=== PATIENT | female | born 2000 | race Caucasian/White ===

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

== ENCOUNTER 2018-05-07 02:21 | Inpatient (IN) | payer BC ==
--- NOTE | 2018-05-07 03:14 | ED ---
General Adult HPI - General Source: patient, RN notes reviewed Mode of arrival: ambulatory Limitations: no limitations <Tate Rodríguez P - Last Filed: 05/07/18 17:12> <Marli Fields P - Last Filed: 05/11/18 23:12> - General Chief complaint: Psychiatric Symptoms Stated complaint: MENTAL HEALTH Time Seen by Provider: 05/07/18 02:37 - History of Present Illness Initial comments: 18-year-old female presents to the emergency department for a chief complaint of suicidal thoughts 1.5 weeks. Patient states she does have a plan of suicide but refuses to disclose it to me at this time. Patient does admit to a history of depression and anxiety for which she is currently on Prozac and Lamictal. Patient states she has been taking her medications as directed. Patient denies any negative events preceding suicidal thoughts. She denies any thoughts of harming anyone else. Patient states she was admitted to psychiatric hospital for a "short time" in the past. Patient has no other complaints at this time including shortness of breath, chest pain, abdominal pain, nausea or vomiting, headache, or visual changes. (Tate Rodríguez) - Related Data Home Medications Medication Instructions Recorded Confirmed FLUoxetine HCL [PROzac] 80 mg PO DAILY 05/07/18 05/07/18 lamoTRIgine [LaMICtal] 200 mg PO DAILY 05/07/18 05/07/18 Allergies Allergy/AdvReac Type Severity Reaction Status Date / Time No Known Allergies Allergy Verified 05/07/18 07:18 Review of Systems ROS Other: All systems not noted in ROS Statement are negative. <Tate Rodríguez P - Last Filed: 05/07/18 17:12> ROS Other: All systems not noted in ROS Statement are negative. <Marli Fields P - Last Filed: 05/11/18 23:12> ROS Statement: Those systems with pertinent positive or pertinent negative responses have been documented in the HPI. Past Medical History Past Medical History: No Reported History History of Any Multi-Drug Resistant Organisms: None Reported Past Surgical History: Adenoidectomy, Tonsillectomy Past Psychological History: Anxiety, Bipolar, Panic Disorder Smoking Status: Never smoker Past Alcohol Use History: Rare Past Drug Use History: None Reported <Tate Rodríguez - Last Filed: 05/07/18 17:12> - Past Family History Father Family Medical History: No Reported History Mother Family Medical History: No Reported History <Marli Fields - Last Filed: 05/11/18 23:12> General Exam Limitations: no limitations General appearance: alert, in no apparent distress Head exam: Present: atraumatic, normocephalic, normal inspection Eye exam: Present: normal appearance, PERRL, EOMI. Absent: scleral icterus, conjunctival injection, periorbital swelling ENT exam: Present: normal exam, mucous membranes moist Neck exam: Present: normal inspection, full ROM. Absent: tenderness, meningismus, lymphadenopathy Respiratory exam: Present: normal lung sounds bilaterally. Absent: respiratory distress, wheezes, rales, rhonchi, stridor Cardiovascular Exam: Present: regular rate, normal rhythm, normal heart sounds. Absent: bradycardia, tachycardia, irregular rhythm Neurological exam: Present: alert, oriented X3, CN II-XII intact Psychiatric exam: Present: normal affect, normal mood <Tate Rodríguez P - Last Filed: 05/07/18 17:12> Vital Signs 05/07/18 05/07/18 02:27 08:00 Temperature 98.2 F 98.0 F Pulse Rate 97 84 Respiratory 18 18 Rate Blood Pressure 150/99 124/86 O2 Sat by Pulse 100 99 Oximetry Medical Decision Making <Tate Rodríguez P - Last Filed: 05/07/18 17:12> - Lab Data Result diagrams: 05/08/18 08:36 05/08/18 08:36 <Marli Fields - Last Filed: 05/11/18 23:12> - Medical Decision Making 18-year-old female presents to the emergency determine for chief suicidal thoughts 1.5 weeks. Patient does have a plan of suicide but refuses to disclose of this time. She does have a history of depression and anxiety and has been admitted for inpatient psychiatric treatment once prior to this. At this time EPI was consulted. Dr Fields took over care at 0400. (Tate Rodríguez ) Patient was evaluated by EPS who recommend inpatient placement (Marli Fields) - Lab Data Lab Results 05/07/18 05/07/18 Range/Units 02:44 02:44 Urine HCG, Qual Not Detected (Not Detectd) Urine Opiates Screen Not Detected (NotDetected) Ur Oxycodone Screen Not Detected (NotDetected) Urine Methadone Screen Not Detected (NotDetected) Ur Propoxyphene Screen Not Detected (NotDetected) Ur Barbiturates Screen Not Detected (NotDetected) U Tricyclic Antidepress Not Detected (NotDetected) Ur Phencyclidine Scrn Not Detected (NotDetected) Ur Amphetamines Screen Not Detected (NotDetected) U Methamphetamines Scrn Not Detected (NotDetected) U Benzodiazepines Scrn Detected H (NotDetected) Urine Cocaine Screen Not Detected (NotDetected) U Marijuana (THC) Screen Not Detected (NotDetected) Disposition Time of Disposition: 17:12 <Tate Rodríguez P - Last Filed: 05/07/18 17:12> <Marli Fields P - Last Filed: 05/11/18 23:12> Clinical Impression: Suicidal thoughts Disposition: ADMITTED IP TO THIS HOSP Condition: Good
[2018-05-07 04:12] LABS: Cocaine Screen,Urine Not Detected (NotDetected); Opiate Screen,Urine Not Detected (NotDetected); Phencyclidine Screen,Urine Not Detected (NotDetected); Urn Cannabinoid Scrn Not Detected (NotDetected)
[2018-05-07 04:13] LABS: Amphetamine Screen,Urine Not Detected (NotDetected); Barbiturate Screen,Urine Not Detected (NotDetected); Benzodiazepines Screen,Urine Detected (NotDetected); Methadone Screen, Urine Not Detected (NotDetected); Oxycodone Screen, Urine Not Detected (NotDetected); Tricyclic Antidepressant,Urine Not Detected (NotDetected)
[2018-05-07] MEDS ORDERED: MAG HYDROX/AL HYDROX/SIMETH 30 ML CUP PO PRN (08:44)
[2018-05-07] MEDS ORDERED: LORazepam 1 MG TAB PO PRN (08:44)
[2018-05-07] MEDS ORDERED: ACETAMINOPHEN TAB 325 MG TAB PO PRN (08:44)
[2018-05-07] MEDS ORDERED: MAGNESIUM HYDROXIDE 2,400 MG/10 ML CUP PO PRN (08:44)
[2018-05-07] MEDS ORDERED: NON-FORMULARY DRUG (Lamotrigine [Lamictal] 200 MG) PO SCH (09:00)
[2018-05-07 09:56] VITALS: BMI 20.9
--- NOTE | 2018-05-07 10:52 | P.CONS ---
History of Present Illness - History of Present Illness 19-year-old female presented the emergency room with complaints of suicidal ideation. States she had plan to crash her car. States she's felt that way for about 10 days. Noted in the chart she has a history of depression bipolar patient on Prozac and Lamictal. Patient's a healthy-appearing 18-year-old Lawrence Lindo freely Review of Systems Psychiatric: Reports depression, Reports suicidal ideation Past Medical History Past Medical History: No Reported History History of Any Multi-Drug Resistant Organisms: None Reported Past Surgical History: Adenoidectomy, Tonsillectomy Past Anesthesia/Blood Transfusion Reactions: Unable to Obtain Past Psychological History: Anxiety, Bipolar, Depression, Panic Disorder Additional Psychological History / Comment(s): Pt resides with her parents. She states she has had suicidal thoughts for about 1.5 weeks. Pt states she has a plan but does not want to discuss it with proposal lead writer. She states she wishes she were . 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 Smoking Status: Never smoker Past Alcohol Use History: Rare Past Drug Use History: None Reported - Past Family History Father Family Medical History: No Reported History Mother Family Medical History: No Reported History Medications and Allergies Home Medications Medication Instructions Recorded Confirmed Type FLUoxetine HCL [PROzac] 80 mg PO DAILY 05/07/18 05/07/18 History lamoTRIgine [LaMICtal] 200 mg PO DAILY 05/07/18 05/07/18 History Allergies Allergy/AdvReac Type Severity Reaction Status Date / Time No Known Allergies Allergy Verified 05/07/18 07:18 Physical Exam Vitals: Vital Signs Temp Pulse Pulse Resp BP BP Pulse Ox 05/07/18 09:48 98.8 F 88 18 119/82 05/07/18 08:00 98.0 F 84 18 124/86 99 05/07/18 02:27 98.2 F 97 18 150/99 100 Intake and Output 05/06/18 05/07/18 05/07/18 22:59 06:59 14:59 Other: Weight 56.699 kg 53.532 kg - Constitutional General appearance: average body habitus, no acute distress - EENT Eyes: PERRLA ENT: normal oropharynx Ears: bilateral: normal - Neck Neck: normal ROM - Respiratory Respiratory: bilateral: CTA - Cardiovascular Rhythm: regular - Gastrointestinal General gastrointestinal: soft - Integumentary Integumentary: normal - Neurologic Neurologic: CNII-XII intact - Musculoskeletal Musculoskeletal: gait normal - Psychiatric Psychiatric: A&O x's 3, appropriate affect, intact judgment & insight Results Labs: Abnormal Lab Results - Last 24 Hours (Table) 05/07/18 Range/Units 02:44 U Benzodiazepines Scrn Detected H (NotDetected) Assessment and Plan Plan: Assessment Depression and suicidal ideation History of bipolar Depression Anxiety with panic disorder Plan Patient is medically stable 18-year-old Continue psychiatric evaluation and treatment
[2018-05-07] MEDS: FLUoxetine HCL 20 MG CAP PO SCH (11:17)
--- NOTE | 2018-05-07 14:48 | P.HP ---
Psychiatric H&P - . H&P Date: 05/07/18 History & Physical: IDENTIFYING DATA: The patient is a 18-year-old single female admitted to the psychiatric unit voluntarily. HISTORY OF PRESENT ILLNESS: She presented to the emergency room with complaints of increasing feelings of depression, hopelessness and thoughts of suicide. She stated that she is felt depressed "almost" continuously since she was a child with "brief" periods where she felt normal. The severity of depression has worsened particular within the last 1-2 weeks prior to admission. She described a sense of impending doom and increasing thoughts of suicide. She told the admitting nurse that she has a plan but was unwilling to discuss the plan during our interview. She described many of the classic symptoms of a depressive disorder including persistent feelings depression, low mood, decreased interest in usual activities, decreased energy, poor appetite and weight loss. She denied a history of suicide attempts or gestures. She had a history of self cutting between the ages of 13 and 15 and described struggling with thoughts and urges to cut herself "to relieve the emotional pain." She denied psychotic symptoms such as auditory, visual or olfactory hallucinations, ideas of reference, thought insertion, thought broadcasting etc. She describes persistent anxiety that varies in severity but denied recent panic attacks. She stated that she had panic attacks "in the past". She denied obsessions or compulsions. She denied use of alcohol or drugs. She described brief periods of elevated mood suggestive of hypomania where she feels as though she is "racing" these episodes last for 1-2 days and resolved spontaneously. She denied that she has experienced a sustained period of elevated mood or irritability lasting for more than 1-2 weeks. PAST PSYCHIATRIC HISTORY: She denied prior psychiatric hospitalizations. Her family referred her for individual counseling when she was 14 years old. She alleged that she was unaware of the reason for the referral but the time coincides with the period when she began cutting herself. After she graduated from high school she attended [employer] where she sought mental health treatment through the University program. This is when she was first prescribed an antidepressant medication. She met with both psychiatrist and individual therapist through the [facility] student clinic. She says she been tried on several antidepressant medications included venlafaxine, sertraline, Lexapro, bupropion. She either could not tolerate or "felt worse" with these medications. She initially "felt better" when she was prescribed Prozac and the dose has been progressively increased to 80 mg per day. She engaged with [facility] about one year ago and meets with both a psychiatrist and individual therapist. This psychiatrist prescribed Lamictal "sometime this year" and gradually increasing doses 200 mg per day. She alleged she noticed no change in her mood with the addition of Lamictal. She denied that she's been treated with lithium or second-generation antipsychotic medications. PAST MEDICAL HISTORY: She denied history of major medical problems. ALLERGIES: NO KNOWN DRUG ALLERGIES. SUBSTANCE USE HISTORY: She denied a history of problems with alcohol or drugs. FAMILY PSYCHIATRIC/SUBSTANCE USE HISTORY: She is unaware of family history of psychiatric or substance abuse problems. LEGAL HISTORY: She denied a history of legal problems. SOCIAL HISTORY: She was born and raised in an intact family. She graduated from high school with honors and talked about having accrued approximately 60 credits of advance placement college credits prior to graduation. She attended [employer] under an academic scholarship for a 3 semesters. When jacqui academic performance declined she lost her scholarship. She did not have a career plan but expressed an interest in studying psychology. 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 She works between 35 and 40 hours per week. She lives at home with her parents. She is single and has no children. She is not dating. MENTAL STATUS EXAM: She presented as a casually groomed young female who looked her stated age. She attended to the interview and made eye contact. She had no distinguishing features or prominent physical abnormalities. She had a depressed facial expression. She was alert and oriented to person, place and time. She showed psychomotor retardation but no abnormal movements. Her gait was slow but steady. Her speech was spontaneous with decreased volume, rate and rhythm. She had no articulation difficulties. Her affect was depressed and not reactive. She describes suicidal ideation and wishes. She denied homicidal ideation. She expressed such depressive cognitions as hopelessness, helplessness and worthlessness. She ruminated about her academic failure. She did not express ideas reference, paranoid ideation or delusional thoughts. Her thinking was abstract and associations were coherent, logical and goal directed. She did not demonstrate clang associations, perseverations, neologisms or blocking. She denied hallucinations and did not appear to be responding to internal stimuli. Global impression of intellect is average to above. She is aware of her illness and need for mental health treatment. STRENGTHS: Supportive family, good health, gainfully unemployment, engagement with mental health services, stable housing. WEAKNESSES: Chronic depression. IMPRESSION: She is a 18-year-old single female who has a history of a depressive disorder beginning in early adolescence. She presented to the psychiatric unit with increasing feelings depression and suicidal ideation. She was guarded during the interview about the nature of the suicidal thoughts and plans. She has many the classic symptoms of a depressive disorder but there is no evidence of psychosis. She has symptoms suggestive of brief periods of elevated mood but the duration and the severity did not appear to meet full criteria for manny or hypomania. She been treated with multiple antidepressant medication without success and most recently with a combination of Prozac and Lamictal. She is unaware of the reason her outpatient psychiatrist prescribed the Lamictal but I suspect is related that brief periods of apparent elevation in mood. She would best be treated inpatient basis with combination of psychopharmacology and multimodal therapy. We'll gradually taper then discontinue Lamictal and discuss treatment another augmentation such as lithium or second generation antipsychotic. PRINCIPLE DIAGNOSIS: Dysthymic disorder, major depressive disorder severe without psychotic features, rule out unspecified personality disorder with dependent features RECOMMENDATION: Continue inpatient hospitalization. Safety precautions. Continue Prozac at a dose of 60 mg per day. Decrease Lamictal to 150 mg daily and taper according to tolerance. Obtain collateral information from family. Consult medicine for initial physical exam and medical history. plate worker to complete initial psychosocial assessment. Encourage participation in therapeutic groups and activities. Evaluate clinical status response to treatment daily basis. Allergies Allergy/AdvReac Type Severity Reaction Status Date / Time No Known Allergies Allergy Verified 05/07/18 07:18 Vital Signs Temp 98.8 F 05/07/18 09:48 Pulse 88 05/07/18 09:48 Resp 18 05/07/18 09:48 BP 119/82 05/07/18 09:48 Pulse Ox 99 05/07/18 08:00 Intake & Output 05/06/18 05/07/18 05/07/18 18:59 06:59 18:59 Weight 56.699 kg 53.532 kg Laboratory Last Values Urine HCG, Qual Not Detected (Not Detectd) 05/07/18 02:44 Urine Opiates Screen Not Detected (NotDetected) 05/07/18 02:44 Ur Oxycodone Screen Not Detected (NotDetected) 05/07/18 02:44 Urine Methadone Screen Not Detected (NotDetected) 05/07/18 02:44 Ur Propoxyphene Screen Not Detected (NotDetected) 05/07/18 02:44 Ur Barbiturates Screen Not Detected (NotDetected) 05/07/18 02:44 U Tricyclic Antidepress Not Detected (NotDetected) 05/07/18 02:44 Ur Phencyclidine Scrn Not Detected (NotDetected) 05/07/18 02:44 Ur Amphetamines Screen Not Detected (NotDetected) 05/07/18 02:44 U Methamphetamines Scrn Not Detected (NotDetected) 05/07/18 02:44 U Benzodiazepines Scrn Detected (NotDetected) H 05/07/18 02:44 Urine Cocaine Screen Not Detected (NotDetected) 05/07/18 02:44 U Marijuana (THC) Screen Not Detected (NotDetected) 05/07/18 02:44 05/07/18 11:28 05/07/18 14:40
[2018-05-07] MEDS: lamoTRIgine 100 MG TAB PO SCH (20:04)
[2018-05-07] MEDS ORDERED: lamoTRIgine 100 MG TAB PO SCH (21:00)
[2018-05-08] MEDS: FLUoxetine HCL 20 MG CAP PO SCH (08:40)
[2018-05-08 09:37] LABS: ALT 27 U/L (9-52); AST 23 U/L (14-36); Albumin 4.8 g/dL (3.5-5.0); Alkaline Phosphatase 77 U/L (38-126); Anion Gap 13 mmol/L; Blood Urea Nitrogen 11 mg/dL (7-17); Calcium 10.3 mg/dL (8.4-10.2); Carbon Dioxide 25 mmol/L (22-30); Chloride 105 mmol/L (98-107); Glucose 95 mg/dL (74-99); Potassium 4.1 mmol/L (3.5-5.1); Sodium 143 mmol/L (137-145); Total Bilirubin 0.7 mg/dL (0.2-1.3); Total Protein 7.8 g/dL (6.3-8.2)
[2018-05-08 09:40] LABS: Basophils % (A) 1 %; Eosinophils # (A) 0.1 k/uL (0-0.7); Eosinophils % (A) 2 %; HCT 41.8 % (34.0-46.0); HGB 13.8 gm/dL (11.4-16.0); Lymphocytes # (A) 1.8 k/uL (1.0-4.8); Lymphocytes % (A) 35 %; MCH 30.1 pg (25.0-35.0); MCV 91.4 fL (80.0-100.0); Mean Platelet Volume 6.5; Monocytes # (A) 0.3 k/uL (0-1.0); Monocytes % (A) 7 %; Neutrophils # (A) 2.8 k/uL (1.3-7.7); Neutrophils % (A) 54 %; Platelet Count 359 k/uL (150-450); RBC 4.58 m/uL (3.80-5.40); RDW 13.1 % (11.5-15.5); WBC 5.2 k/uL (4.0-11.0)
--- NOTE | 2018-05-08 12:33 | P.PN ---
Progress Note - Text Progress Note Date: 05/08/18 Clinical Problems: Dysthymic disorder, major depressive disorder recurrent severe without psychotic features, unspecified personality disorder Interim history: I reviewed the medical record, interviewed the patient and discussed her treatment and treatment plan during team meeting. We reviewed her history and clarified the circumstances associating with the increase in complaints of depression and suicidal ideation. She stated that she feels that she is a burden to her friends and family. She feels she is a burden because she is chronically depressed and feels dependent on her friends. She alleged that she does not have a close relationship with her mother or father. She appears never to have developed a close restaurant with her father and recently feels more estranged from mother. As during the initial assessment she was vague and guarded about her history and maintaining only that she feels chronically depressed, hopeless and useless. Apparently her sister told her parents that she was admitted to the hospital and her parents visited last night. The patient agreed to a release and her nephrology social worker spoke with her mother. Her mother told nephrology social worker that Mindi does not like confrontation and they have been confronting her more. For example they have confronted her about not taking college classes this fall, not caring for her pet animals and not going to counseling appointments. Her mother stated that she has been distancing herself from her parents and staying with a friend Sharyn. Her friend Sharyn told her parents that Mindi asked Sharyn to administer her medications because she did not trust herself to take medications appropriately. Her mother expressed concern that Estlele may be drinking alcohol while taking the medications. Mental status exam: She presented as a thin pale appearing 18-year-old female who looked much greater than her stated age. She had a depressed facial expression. She showed psychomotor retardation but no abnormal movements. Her speech was not spontaneous and had decreased rate, rhythm and volume. Affect was depressed and not reactive. She expects suicidal ideation and wishes but denied current intent or plan. She did not express ideas reference or paranoid ideation. Her thinking was abstract and associations were coherent and logical. She denied hallucinations and did not appear to be responding to internal stimuli. Assessment: She continues to appear depressed and has passive suicidal ideation. Collateral information is suggesting characterological component to the chronic depression. Plan: Continue inpatient hospitalization. Continue safety precautions. Continue to taper will begin a plan to discontinue Lamictal. Begin lithium carbonate 300 mg twice a day when the Lamictal has been decreased to 50-100 mg daily. Continue Prozac 60 mg daily. Encourage continued participation in therapeutic groups and activities. Evaluate clinical status response to treatment on a daily basis.
[2018-05-08] MEDS: lamoTRIgine 100 MG TAB PO SCH (20:01)
[2018-05-09] MEDS: FLUoxetine HCL 20 MG CAP PO SCH (10:27)
--- NOTE | 2018-05-09 12:30 | P.PN ---
Progress Note - Text Progress Note Date: 05/09/18 Clinical Problems: Dysthymic disorder, major depressive disorder recurrent severe without psychotic features, unspecified personality disorder with dependent traits Interim history: I reviewed the medical record, interviewed the patient and discuss her treatment and treatment plan during team meeting. She reported feeling less depressed than on admission. She denied current suicidal thoughts. We talked about the concerns that her mother raised during her mother's conversation with the executive secretary social welfare. We also talked about the circumstances that may have contributed to worsening depression. Apparently, her depression worsened following the breakup with her most recent girlfriend. This was the person with whom she was living before she returned home. She is in agreement with the recommendation for a family meeting. She continues to agree with the plan to taper and discontinue the Lamictal and begin a trial of lithium as an augmentation of the antidepressant. Mental status exam: She presented as a thin and pale appearing young female who looked much younger than her stated age. She had a blunted facial expression. She showed psychomotor retardation but no abnormal movements. Her speech was spontaneous with slight decrease in rate and rhythm. Her affect was depressed but reactive (unlike during prior interviews). She denied experiencing current suicidal thoughts or wishes. She did not express psychotic symptoms. Her thinking remains abstract and her associations are coherent and goal directed. Assessment: She appears less distressed than on admission and appears more forthcoming about the circumstances that may have led to the worsening in her mood. Plan: Continue inpatient hospitalization. Continue safety precautions. Decrease Lamictal to 100 mg at bedtime continue to taper then discontinue. Continue Prozac 60 mg daily. Begin lithium 300 mg twice a day. Family meeting is scheduled for tomorrow. Anticipate discharge early next week.
[2018-05-09] MEDS: LITHIUM CARBONATE 300 MG CAP PO SCH (20:16)
[2018-05-09] MEDS ORDERED: lamoTRIgine 100 MG TAB PO SCH (21:00)
[2018-05-10] MEDS: FLUoxetine HCL 20 MG CAP PO SCH (08:29)
[2018-05-10] MEDS: LITHIUM CARBONATE 300 MG CAP PO SCH ×2 (08:29→20:05)
--- NOTE | 2018-05-10 17:11 | P.PN ---
Progress Note - Text Progress Note Date: 05/10/18 IDENTIFICATION DATA: 18-year-old female admitted to the psychiatric unit voluntarily with complaints of increasing feelings of depression, hopelessness and thoughts of suicide. INTERVAL HISTORY: No major behavioral problems reported. Patient reports to have attended family meeting which went well. She is currently looking forward to go back to live wither parents. She reports feeling better than the day of her admission. She currently rates her depression as 6/10 1 being beast and 10 being worst. She reports good sleep and appetite. MENTAL STATUS EXAMINATION: Patient is pleasant and cooperative. She is dressed casually and appears in good grooming and hygiene. No abnormal movements noted. Her speech is soft and slow. Thought process is goal directed. She denies current auditory or visual hallucinations. She denies paranoia. The patient is alert and oriented 4 Mood is reported as better and affect is appropriate. Denies current suicidal or homicidal ideation. insight and judgment are improving ASSESSMENT AND PLAN: Reduce the dose of lamictal from 100mg po qhs to 75mg po qhs. Continue lithium and prozac.
[2018-05-10] MEDS ORDERED: lamoTRIgine 25 MG TAB PO SCH (21:00)
[2018-05-11] MEDS: FLUoxetine HCL 20 MG CAP PO SCH (09:05)
[2018-05-11] MEDS: LITHIUM CARBONATE 300 MG CAP PO SCH ×2 (09:06→20:41)
[2018-05-11 12:28] LABS: Amorphous Sediment,Urine Rare /hpf; Appearance,Urine Cloudy (Clear); Bilirubin,Urine Negative (Negative); Blood,Urine Negative (Negative); Color,Urine Light Yellow; Glucose,Urine (UA) Negative (Negative); Ketones,Urine Negative (Negative); Leukocyte Esterase,Urine Negative (Negative); Mucus,Urine Rare /hpf; Nitrite,Urine Negative (Negative); PH, Urine 7.5 (5.0-8.0); Protein,Urine Negative (Negative); Squamous Epithelial Cell,Urine 1 /hpf (0-4); Urobilinogen,Urine <2.0 mg/dL (<2.0)
--- NOTE | 2018-05-11 17:55 | P.PN ---
Progress Note - Text Progress Note Date: 05/11/18 IDENTIFICATION DATA: 18-year-old female admitted to the psychiatric unit voluntarily with complaints of increasing feelings of depression, hopelessness and thoughts of suicide. INTERVAL HISTORY: She states her goal is to complete one more year of her college and to find something that interests her later. She reports being complaint with her medications and denies side effects. She says her parents and friends have visited her yesterday. She reports significant improvement of her depression when compared to her day of admission. No major behavioral problems reported. She reports good sleep and appetite. She attends most of her assigned groups. MENTAL STATUS EXAMINATION: Patient is pleasant and cooperative. She is dressed casually and appears in good grooming and hygiene. No abnormal movements noted. Her speech is soft. Thought process is goal directed. She denies current auditory or visual hallucinations. She denies paranoia. The patient is alert and oriented 4 Mood is reported as better and affect is appropriate. Denies current suicidal or homicidal ideation. insight and judgment are improving ASSESSMENT AND PLAN: Reduce the dose of lamictal from 75mg po qhs to 50mg po qhs. Continue lithium and prozac.
[2018-05-11] MEDS ORDERED: lamoTRIgine 25 MG TAB PO SCH (21:00)
[2018-05-12 07:09] VITALS: BP 125/74; PULSE 76; RESP 18; TEMP 98.1
[2018-05-12] MEDS: LITHIUM CARBONATE 300 MG CAP PO SCH (08:05)
[2018-05-12] MEDS: FLUoxetine HCL 20 MG CAP PO SCH (08:05)
--- NOTE | 2018-05-12 11:53 | P.DS ---
Providers Date of admission: 05/07/18 08:42 Attending physician: Aquiles Worthy MD Consults: 05/07/18 08:44 Consult Physician Routine Consulting Provider: Alphonse Cabral Consult Reason/Comments: H and P Do you want consulting provider notified?: Yes - Discharge Diagnosis(es) (1) Dysthymic disorder Current Visit: Yes Status: Chronic Priority: Medium (2) Major depressive disorder, recurrent episode Current Visit: Yes Status: Resolved Priority: Medium (3) Suicidal thoughts Current Visit: Yes Status: Resolved Priority: Medium Hospital Course: The patient is a 18-year-old single female admitted to the psychiatric unit voluntarily with complaints of increasing depression and suicidal ideation. She complained of feeling depressed almost continuously since he was a child with only brief periods where she "felt normal". She alleged the severity of depression had worsened one to 2 weeks prior to admission. She described a sense of impending doom and increasing thoughts of suicide. She is vague about her plan. She described many of the classic symptoms of depression including persistent feelings of sadness, lack of energy , low mood, decreased interest in usual activities, poor appetite etc. She denied a history of suicide attempts or gestures. She had history of self cutting between the ages of 13 and 15 and describes struggling with thoughts and urges to cut herself again "to relieve emotional pain." She denied psychotic symptoms. She described persistent anxiety that varies in severity but denied symptoms suggestive of panic attacks. She described periods of elevated mood suggestive of hypomania where she feels as though she has "racing ". However these episodes last for no more than one day and resolve spontaneously. She denied that she is experiencing sustained periods of elevated mood or irritability lasting for more than 1-2 weeks. We admitted her to psychiatric unit involuntarily under the care of this designer writer. We provided a comprehensive biopsychosocial assessment. The sales development consultant machinist brake completed initial physical exam and medical history. She participated in therapeutic groups and activities and posed no management problem. A recurring theme during individual and group contacts was a general unhappiness with the state of her life. After she lost her academic scholarship (due to poor academic performance) she did not return to school. She is no longer living with a girlfriend and is dissatisfied with living with her parents. We arranged a family meeting attended by both her parents. She reported improved mood following the family meeting because she was able to express her concerns to her parents. We will reduce her outpatient dose of Prozac from 80 mg to 60 mg per day and tapered Lamictal to 50 mg per day (with the intent to discontinue as an outpatient). We started lithium 300 mg by mouth twice a day for augmentation of the Prozac. At the time of discharge she reported improved mood and absence of suicidal thoughts, ideation, intent or plan. She plans to continue with outpatient treatment through [facility]. Patient Condition at Discharge: Good Plan - Discharge Summary Discharge Rx Participant: No New Discharge Prescriptions: New FLUoxetine HCL [PROzac] 60 mg PO DAILY #90 cap lamoTRIgine [LaMICtal] 50 mg PO HS #8 tab [place] Carbonate 300 mg PO BID #60 cap Discontinued lamoTRIgine [LaMICtal] 200 mg PO DAILY FLUoxetine HCL [PROzac] 80 mg PO DAILY Discharge Medication List FLUoxetine HCL [PROzac] 60 mg PO DAILY #90 cap 05/12/18 [Rx] [place] Carbonate 300 mg PO BID #60 cap 05/12/18 [Rx] lamoTRIgine [LaMICtal] 50 mg PO HS #8 tab 05/12/18 [Rx] Follow up Appointment(s)/Referral(s): [facility] [Outside] - 05/21/18 12:00 pm (Marita Ochoa on cancellation list to get in earlier. ) Alphonse Cabral MD [STAFF PHYSICIAN] - 1-2 days Discharge Disposition: HOME SELF-CARE
== END 2018-05-12 14:30 | disposition home or self-care (01) | DRG 885 ==
LOC: EC 02:21 → 3MHU 08:42
PROVIDERS: ADMIT Psychiatry & Neurology Psychiatry; ATTEND Psychiatry & Neurology Psychiatry
DX: F33.2 Major depressive disorder, recurrent severe without psychotic features (principal); R45.851 Suicidal ideations; F34.1 Dysthymic disorder; F41.0 Panic disorder [episodic paroxysmal anxiety]; F60.9 Personality disorder, unspecified; Z79.899 Other long term (current) drug therapy; Z91.5 Personal history of self-harm
CPT/HCPCS: 80053; 80306; 81001; 81025; 82075; 84443; 85025; 99285

== ENCOUNTER → 2018-06-11 | Outpatient (CLI) | payer BC | END | disposition home or self-care (01) | LOC: LABWHC1 12:26 | PROVIDERS: ATTEND Psychiatry & Neurology Psychiatry | DX: Z51.81 Encounter for therapeutic drug level monitoring (principal) | CPT/HCPCS: 36415; 80178 ==

== ENCOUNTER → 2018-07-05 | Outpatient (CLI) | payer BC | END | disposition home or self-care (01) | LOC: LABWHC1 10:25 | PROVIDERS: ATTEND Psychiatry & Neurology Psychiatry | DX: F32.9 Major depressive disorder, single episode, unspecified (principal) | CPT/HCPCS: 36415; 80178 ==

== ENCOUNTER → 2018-07-26 | Outpatient (CLI) | payer BC | LOC: LABWHC1 10:07 | PROVIDERS: ATTEND Psychiatry & Neurology Psychiatry | DX: F34.1 Dysthymic disorder (principal); F41.1 Generalized anxiety disorder | CPT/HCPCS: 36415; 80178 ==

== ENCOUNTER → 2020-06-30 | Outpatient (CLI) | payer BC ==
[2020-06-30 14:50] LABS: Basophils % (A) 1 %; Eosinophils # (A) 0.1 k/uL (0-0.7); Eosinophils % (A) 2 %; HCT 40.3 % (34.0-46.0); HGB 14.1 gm/dL (11.4-16.0); Lymphocytes # (A) 1.7 k/uL (1.0-4.8); Lymphocytes % (A) 31 %; MCH 31.7 pg (25.0-35.0); MCHC 35.1 g/dL (31.0-37.0); MCV 90.3 fL (80.0-100.0); Mean Platelet Volume 7.2; Monocytes # (A) 0.3 k/uL (0-1.0); Monocytes % (A) 5 %; Neutrophils # (A) 3.3 k/uL (1.3-7.7); Neutrophils % (A) 59 %; Platelet Count 268 k/uL (150-450); RBC 4.46 m/uL (3.80-5.40); WBC 5.6 k/uL (3.8-10.6)
== END | disposition home or self-care (01) ==
LOC: LABPAT 14:30
PROVIDERS: ATTEND Obstetrics & Gynecology
DX: Z01.818 Encounter for other preprocedural examination (principal); G89.29 Other chronic pain; R10.2 Pelvic and perineal pain
CPT/HCPCS: 36415; 85025

== ENCOUNTER 2020-07-11 09:05 | Day surgery (SDC) | payer BC ==
[2020-07-05 14:47] VITALS: BMI 24.7
[~2020-07-11 09:05] MED LIST: DEXAMETHASONE SOD PHOSPHATE 4 MG/ML 1 ML VIAL IV ONE; MIDAZOLAM 2 MG/2 ML VIAL IV PRN; ONDANSETRON 4 MG/2 ML VIAL IVP ONE; Pre Op ABX Message 1 EACH MISC MISCELLANE ONE; SCOPOLAMINE 1.5MG/72HR PATCH TRANSDERM ONE
[2020-07-11] MEDS ORDERED: LIDOCAINE 1% (10MG/ML) FOR IV START INTRADERMA ONE (09:34)
[2020-07-11] MEDS ORDERED: LIDOCAINE 1% INJ 10MG/ML (20 ML MDV) ONE (09:45)
[2020-07-11] MEDS ORDERED: GLYCOPYRROLATE 0.2 MG/ML 2 ML VIAL ONE (09:45)
[2020-07-11] MEDS ORDERED: NEOSTIGMINE 1 MG/ML 10 ML VIAL ONE (09:45)
[2020-07-11] MEDS ORDERED: PROPOFOL 10 MG/ML 20 ML VIAL IV ONE (09:45)
[2020-07-11] MEDS ORDERED: SUCCINYLCHOLINE CHLORIDE 100 MG/5 ML SYR IV ONE (09:45)
[2020-07-11] MEDS ORDERED: MIDAZOLAM 2 MG/2 ML VIAL ONE (09:45)
[2020-07-11] MEDS ORDERED: ROCURONIUM 10 MG/ML (10 ML VIAL) IV ONE (09:45)
[2020-07-11] MEDS ORDERED: KETOROLAC 15 MG/ML 1 ML VIAL ONE (09:45)
[2020-07-11] MEDS ORDERED: fentaNYL (PF) 50 MCG/ML 2 ML AMP ONE (09:45)
[2020-07-11] MEDS: LACTATED RINGERS 1,000 ML IV SCH ×2 (09:50→11:39)
[2020-07-11] MEDS ORDERED: LACTATED RINGERS 1,000 ML IV ONE (09:53)
[2020-07-11] MEDS ORDERED: BUPIVACAIN-EPI 0.25%-1:200,000 30 ML VIAL SQ ONE ×2 (10:14)
--- NOTE | 2020-07-11 10:39 | P.OP ---
Date of Procedure: 07/11/20 Preoperative Diagnosis: Cyclic chronic pelvic pain Postoperative Diagnosis: Pelvic endometriosis Procedure(s) Performed: Diagnostic laparoscopy, cautery pelvic endometriosis Anesthesia: ANATOLIY Surgeon: Minna Sprague Estimated Blood Loss (ml): 15 IV fluids (ml): 700 Urine output (ml): 25 Pathology: none sent Condition: stable Disposition: PACU Operative Findings: A cluster of pelvic endometriosis noted in the right posterior cul-de-sac near the uterosacral ligament. Description of Procedure: Patient is brought to the operating suite where general anesthetic is administered without difficulty. Beta hCG is negative. The appropriate timeout is performed to assure proper patient and procedural identification and a general anesthetic is administered. Patient is placed in the dorsal lithotomy position. The cervix, vagina, perineal body, and abdomen are all prepped and draped in usual sterile fashion. Bladder is drained for approximately 25 mL of clear yellow urine. Weighted speculum was placed into the vagina and the anterior lip of the cervix is grasped with a long Allis clamp. The small acorn cannula is placed onto the external os and attached to the Allis clamp. The speculum is removed. Attention is now turned to the abdomen. A small infraumbilical incision is made and the varies needle is placed and placement is checked with hanging drop technique. Abdomen is insufflated under low filling pressures of approximately 6 mmHg to approximately 3 L of CO2 gas. The varies needle is removed. The trochars placed and placement is noted to be atraumatic. A second incision is made suprapubically and a second trocar is placed under direct visualization, again entry is atraumatic. Patient is now put in the Trendelenburg position. Careful inspection of the uterus, bilateral tubes and ovaries, uterosacral ligaments, anterior and posterior cul-de-sac, pelvic sidewalls, appendix, gallbladder is undertaken. There is a foci or cluster of endometriosis noted behind the right lateral aspect of the uterus near the cul-de-sac, at the base of the uterosacral ligament. This is cauterized carefully and thoroughly. No additional foci of endometriosis are noted upon thorough inspection of the pelvic and abdominal organs. The CO2 gas was allowed to diffuse. The instruments are removed and the fascial defects are clean and dry. 4-0 undyed Monocryl is used for subcuticular closure of the 2 incisions. They are injected with a total of 10 mL of quarter percent Marcaine aid in analgesia. Instrumentation is removed from the vagina. Cervix is clean and dry. All sponge needle and instrument counts are correct. Patient is brought back to recovery room in very good condition with stable vital signs including a blood pressure of 104/50, pulse of 52, 100% O2 saturation. Toradol is given prior to leaving the operative suite. Patient will follow-up with me in the office in 2 weeks.
[2020-07-11 10:46] VITALS: TEMP 97.1
[2020-07-11] MEDS: HYDROmorphone 0.5 MG/0.5 ML SYRINGE IVP PRN ×2 (10:48→11:11)
[2020-07-11] MEDS ORDERED: ACETAMINOPHEN TAB 325 MG TAB ONE (12:32)
[2020-07-11 13:00] VITALS: BP 133/88; PULSE 88; RESP 18
== END 2020-07-11 13:10 | disposition home or self-care (01) ==
LOC: OR 09:05
PROVIDERS: ATTEND Obstetrics & Gynecology
DX: N80.3 Endometriosis of pelvic peritoneum (principal); G89.29 Other chronic pain; F41.9 Anxiety disorder, unspecified; F31.9 Bipolar disorder, unspecified; Z88.8 Allergy status to other drugs, medicaments and biological substances; Z90.89 Acquired absence of other organs; Z82.49 Family history of ischemic heart disease and other diseases of the circulatory system; Z82.5 Family history of asthma and other chronic lower respiratory diseases; Z83.79 Family history of other diseases of the digestive system
CPT/HCPCS: 81025; 84703; 58662; J2250; J1100; J2710; J2405; J2001; J3010; J1885; J0330; J2704; J1170

== ENCOUNTER 2022-05-24 07:53 | Day surgery (SDC) | payer BC ==
[2022-05-22 15:23] VITALS: BMI 23.9
[~2022-05-24 07:53] MED LIST changes: -DEXAMETHASONE SOD PHOSPHATE 4 MG/ML 1 ML VIAL IV ONE; +LACTATED RINGERS 1,000 ML IV SCH; +LIDOCAINE 1% (10MG/ML) FOR IV START INTRADERMA PRN; -MIDAZOLAM 2 MG/2 ML VIAL IV PRN; -ONDANSETRON 4 MG/2 ML VIAL IVP ONE; -Pre Op ABX Message 1 EACH MISC MISCELLANE ONE; -SCOPOLAMINE 1.5MG/72HR PATCH TRANSDERM ONE
[2022-05-24 08:14] VITALS: RESP 16; TEMP 97.3
--- NOTE | 2022-05-24 08:39 | P.PCN ---
Date of Procedure: 05/24/22 Description of Procedure: Procedure: 1. Lumbar puncture for CSF collection PREOPERATIVE DIAGNOSIS: Abnormal brain MRI, rule out degenerative disease, history of numbness and tingling sensation POSTOPERATIVE DIAGNOSIS: Abnormal MRI of the brain, and rule out degenerative disease SURGEON: Willam Langley ANESTHESIA: Local with 1% lidocaine, and IV sedation : None EBL: None. Specimen removed: 3 mL of CSF in each collecting tube X4 PROCEDURE INDICATION: The patient had history of numbness and tingling sensation in her feet, upper extremities . Consulted for lumbar puncture for CSF collection send it for analysis. PROCEDURE DESCRIPTION: The patient was seen and identified. Risks, benefits, complications, and alternatives were discussed with the patient. The patient agreed to proceed with the procedure and signed the consent, and vital signs were stable. Patient was taken to the procedure area, and time out was completed. The patient was placed in sitting position on procedure. . The lumbosacral area was prepped and draped in the usual sterile fashion. Critical pause was taken. Vital signs were closely monitored during the procedure. Posterior superior iliac crest landmarks was identified . The midline lumbar space also identified. Approximately at the level of L4-L5 interspinous space, skin and deeper tissues were localized with 5 mL of 1% lidocaine. Using a 22 gauge 3.5 spinal needle entered into subarachnoid space, with [ ] attempt. Clear CSF came out of the spinal needle. 3 mL of CSF fluid collected in each tube 4. Needle was withdrawn intact, skin was cleansed, and bandages were applied. COMPLICATIONS: None. DISPOSITION / PLANS: The patient was placed in a supine position and transferred to the recovery area in a stable condition for observation. Patient was discharged from the recovery room after meeting discharge criteria. Home discharge instructions given to the patient by the staff. The patient was reexamined prior to discharge.
[2022-05-24 08:58] VITALS: BP 110/78; PULSE 81
[2022-05-24 16:21] LABS: Appearance,CSF Clear; CSF Tube Number 4; Nucleated Cells, CSF 0 u/L (0-5); Red Blood Cell,CSF 0 u/L (0-10)
[2022-05-24 16:31] LABS: Glucose,CSF 52 mg/dL (40-70); Total Protein,CSF 67 mg/dL (12-60)
[2022-05-24 18:09] LABS: Anti-Smith Ab Interp NEGATIVE (NEGATIVE); DNA Double-Stranded NEGATIVE (NEGATIVE)
[2022-05-25 00:54] LABS: ALT 11 U/L (8-44); AST 13 U/L (13-35)
[2022-05-25 11:27] LABS: VDRL, Qualitative CSF Nonreactive (Nonreactive)
[2022-05-25 12:24] LABS: IgG - CSF 2.3 mg/dL (0.0 - 3.4); IgG/Albumin Index (CSF) 0.43 (0.00 - 0.77); Immunoglobulin G 780 mg/dL (700 - 1600)
[2022-05-28 14:38] LABS: Lyme IgG/IgM 0.08 Index
[2022-05-28 15:13] LABS: Rheumatoid Factor, Qnt <10
== END 2022-05-24 09:10 | disposition home or self-care (01) ==
LOC: ORPAIN 07:53
DX: R90.89 Other abnormal findings on diagnostic imaging of central nervous system (principal); F32.A Depression, unspecified; N80.9 Endometriosis, unspecified
CPT/HCPCS: 62270; 81025; 82040; 82042; 82784; 82945; 83916; 84157; 84439; 84443; 84450; 84460; 86038; 86225; 86235; 86431; 86592; 86618; 86780; 87801; 88108; 89050

== ENCOUNTER 2023-04-24 07:41 | Day surgery (SDC) | payer BC ==
[~2023-04-24 07:41] MED LIST changes: +DEXAMETHASONE SOD PHOSPHATE 4 MG/ML 1 ML VIAL IV ONE; +FAMOTIDINE 20 MG/2 ML VIAL IV PRN; +HYDROmorphone 0.5 MG/0.5 ML SYRINGE IVP PRN; -LACTATED RINGERS 1,000 ML IV SCH; +ONDANSETRON 4 MG/2 ML VIAL IVP ONE; +ONDANSETRON 4 MG/2 ML VIAL IVP PRN
[2023-04-24] MEDS: OXYMETAZOLINE 0.05% NASL SPRAY 1 SPRAY BOTTLE EA NOSTRIL PRN ×5 (08:17→08:37)
[2023-04-24] MEDS: LACTATED RINGERS 1,000 ML IV SCH ×2 (08:34→08:45)
[2023-04-24] MEDS ORDERED: ROCURONIUM 10 MG/ML (5 ML VIAL) IV ONE (08:43)
[2023-04-24] MEDS ORDERED: PROPOFOL 10 MG/ML 20 ML VIAL IV ONE (08:43)
[2023-04-24] MEDS ORDERED: LIDOCAINE 1% INJ 10MG/ML (20 ML MDV) ONE (08:43)
[2023-04-24] MEDS ORDERED: MIDAZOLAM 2 MG/2 ML VIAL ONE (08:43)
[2023-04-24] MEDS ORDERED: NEOSTIGMINE 1 MG/ML 10 ML VIAL ONE (08:43)
[2023-04-24] MEDS ORDERED: GLYCOPYRROLATE 0.2 MG/ML 2 ML VIAL ONE (08:43)
[2023-04-24] MEDS ORDERED: fentaNYL (PF) 50 MCG/ML 2 ML AMP ONE (08:43)
[2023-04-24] MEDS ORDERED: LIDOCAINE 2%-EPI 1:100,000 20 ML VIAL SUBMUCOSAL ONE (08:45)
[2023-04-24] MEDS ORDERED: BACITRACIN ZINC 500 UNIT/GM OINT 28.4 GM TUBE TOPICAL ONE (08:45)
--- NOTE | 2023-04-24 10:03 | P.OP ---
Date of Procedure: 04/24/23 Preoperative Diagnosis: Deviated nasal septum Inferior turbinate hypertrophy Chronic sinusitis Postoperative Diagnosis: Same Procedure(s) Performed: Septoplasty Outfracture and submucous resection of the inferior turbinates Bilateral endoscopic sinus surgery including bilateral maxillary antrostomy with removal of tissue from the right maxillary sinus, bilateral anterior and posterior ethmoidectomy with right sphenoidotomy and right frontal sinusotomy with exploration Anesthesia: ANATOLIY Surgeon: Jimbo Cooper Estimated Blood Loss (ml): 10 Pathology: other (Nasal septal bone and cartilage and sinus contents) Condition: stable Disposition: PACU Indications for Procedure: This 23-year-old white female whose had difficulties with chronic nasal airway obstruction congestion and recurrent/chronic sinusitis Operative Findings: Nasal septum deviated to the left with inferior turbinate hypertrophy bilaterally. Maxillary ostia were obstructed bilaterally. There is mucosal thickening throughout the ethmoid sinuses with small polyps. Mucosal thickening in the right frontal and right sphenoid sinus also with small polyps Description of Procedure: The patient was brought into the operative suite and placed in a supine pos ition. The patient underwent induction of general anesthesia with oral endotracheal intubation without difficulty. The patient was prepped and draped in the usual aseptic fashion with the orbits in the operating field for monitoring to the case and the computed tomography scan was on the computer screen for review throughout the case. 1% lidocaine with 1 :100,000 epinephrine was infused submucosally into both sides of the nasal septum as well as the lateral nasal wall and anterior tips of the middle turbinates. While this was taking vasoconstrictive effect the inferior turbinates were infractured with Uxbridge elevator and partial submucous resection of the inferior turbinates was performed with a portion of the submucosal soft tissue and the inferior turbinate bone removed with Coblation device. The inferior turbinates were then outfractured with the Uxbridge elevator. A left hemitransfixion incision was then made with the mucoperichondrial and mucoperiosteal flap on the left elevated. The bony cartilaginous junction was disarticulated and the mucoperiosteal flap on the right was elevated. Bony nasal septal deformities were removed with Narayan forceps and an inferior cartilaginous strip was removed leaving a full 1.5 cm caudal strut. Checking intranasally this corrected the nasoseptal deformities and the hemitransfixion incision was closed with a running 4-0 chromic suture. Full 0° endoscopic examination is performed bilaterally. Beginning on the left, the middle turbinate was medialized. The maxillary ostium was located with a ballpoint probe and an infundibulotomy was performed followed by uncinectomy. The maxillary antrostomy was enlarged at the expense of the anterior and posterior fontanelle taking care anteriorly not to injure the lacrimal bone. The maxillary sinus was evaluated with 30 and 70° endoscope .[Abnormal appearing tissue was removed from the maxillary sinus]. Anterior and posterior ethmoidectomy were then performed from anterior to post erior to the level of the skull base. The roof of the anterior ethmoid air cells were then cleaned from posterior to anterior using up-biting Blakesley forceps. The maxillary antrostomy anterior posterior ethmoidectomy were performed the same on the right as the left with additional removal of tissue from the right maxillary sinus which was a small polyps. In addition on the right , frontal sinusotomy was performed with a ballpoint probe up-biting Blakesley forcep and giraffe forcep and was explored with small polyps removed. The frontal sinus was then explored with 30° endoscope.[Abnormal tissue was removed from the frontal sinus]. Right sphenoidotomy was also performed with straight #8 suction and straight Blakesley forceps . The sphenoid sinus was then explored with 0° endoscope.[Abnormal tissue was removed from the sphenoid sinus]. [Nasopore nasal dressing was placed in the middle meatus bilaterally under direct visualization]. Bilateral Tellez airway splints coated with bacitracin ointment were placed and sutured transseptally with a 4-0 nylon suture. The patient was suctioned in oral gastric fashion and was allowed to emerge from general anesthesia having tolerated procedure well and was extubated in the operating suite and transferred to the postoperative recovery area in satisfactory condition.
[2023-04-24 10:25] VITALS: TEMP 96.9
[2023-04-24 11:00] VITALS: RESP 16
[2023-04-24 11:36] VITALS: BP 135/88; PULSE 72
== END 2023-04-24 11:38 | disposition home or self-care (01) ==
LOC: OR 07:41
PROVIDERS: ATTEND Otolaryngology
DX: J34.2 Deviated nasal septum (principal); J34.3 Hypertrophy of nasal turbinates; J32.9 Chronic sinusitis, unspecified; F41.9 Anxiety disorder, unspecified; F32.A Depression, unspecified; G43.909 Migraine, unspecified, not intractable, without status migrainosus; Z98.890 Other specified postprocedural states; Z90.89 Acquired absence of other organs; Z79.899 Other long term (current) drug therapy
CPT/HCPCS: 30520; 31257; 31267; 31276; 81025; 88305; 88300; J2250; J1100; J2710; J0690; J2405; J2001; J3010; J3490; J2704

== ENCOUNTER → 2024-08-04 | Outpatient (CLI) | payer BC ==
--- NOTE | 2024-08-04 08:17 | US ---
EXAMINATION TYPE: US abdomen complete DATE OF EXAM: 08/04/2024 COMPARISON: NONE CLINICAL INDICATION: Female, 24 years old with history of R10.84 GEN ABD PAIN; nausea & dizziness TECHNIQUE: Grayscale and color Doppler imaging of the abdomen was performed. FINDINGS: EXAM MEASUREMENTS: Liver Length: 12.0 cm Gallbladder Wall: 0.2 cm CBD: 0.2 cm, color Doppler imaging was utilized to isolate the common bile duct for measurement. Spleen: 8.9 cm Right Kidney: 9.2x3.9x5.2 cm Left Kidney: 10.1x4.7x4.8 cm ACID FILLER NOTES: limited scan due to overlying bowel & pt body habitus Pancreas: Obscured by bowel gas Liver: heterogenous course echotexture, slightly difficult to penetrate Gallbladder: No stones seen Evidence for sonographic Vasquez's sign: No CBD: wnl Spleen: wnl Right Kidney: wnl, No hydronephrosis, calculi or masses seen Left Kidney: wnl, No hydronephrosis, calculi or masses seen Upper IVC: wnl as best visualized Abd Aorta: slightly limited, wnl as best visualized IMPRESSION: Nonspecific pattern to the liver could be seen with underlying hepatocellular disease or hepatic stea tosis. [facility], , 08/04/2024 8:15 AM
== END | disposition home or self-care (01) ==
LOC: RADUSWWP 07:19
PROVIDERS: ATTEND Family Medicine
DX: R10.84 Generalized abdominal pain (principal)
CPT/HCPCS: 76700

== ENCOUNTER 2025-01-13 07:14 | Day surgery (SDC) | payer BC ==
[2025-01-12 10:17] VITALS: BMI 31.8
[2025-01-13] MEDS: IV FLUID CONTINUATION 1,000 ML IV ONE (07:49)
[2025-01-13] MEDS: LACTATED RINGERS 1,000 ML IV SCH (08:01)
[2025-01-13 08:04] VITALS: TEMP 97.2
[2025-01-13] MEDS ORDERED: LIDOCAINE 2% (PF) 20 MG/ML 5 ML VIAL ONE (08:42)
[2025-01-13] MEDS ORDERED: fentaNYL (PF) 50 MCG/ML 2 ML AMP ONE (08:42)
[2025-01-13] MEDS ORDERED: PROPOFOL 10 MG/ML 20 ML VIAL IV ONE (08:42)
--- NOTE | 2025-01-13 09:02 | P.PCN ---
Date of Procedure: 01/13/25 Procedure(s) Performed: Brief history: Patient is a pleasant 24-year-old white female scheduled for an elective upper endoscopy as well as colonoscopy as a part of evaluation of abdominal pain, intermittent nausea vomiting and change in bowel habits for the last several years duration Procedure performed: Esophagogastroduodenoscopy with biopsy Colonoscopy Preoperative diagnosis: Abdominal pain, intermittent nausea vomiting Change in bowel habits Anesthesia: MAC Procedure: After informed consent was obtained from the patient was brought into the endoscopy unit and IV sedation was administered by anesthesia under continuous monitoring. Initially upper endoscopy was done. The Olympus GF 160 video endoscope was inserted inserted into the mouth and esophagus intubated without any difficulty and was gradually advanced into the stomach and duodenum and carefully examined. The bulb and second part of the duodenum appeared normal. Biopsies were done from the duodenum to rule out celiac disease. The scope was then withdrawn into the stomach adequately insufflated with air and upon careful examination the antrum had mild gastritis and biopsies were done from this area. Mucosa of the body, cardia and fundus appeared normal. The scope was then withdrawn into the esophagus. The GE junction was located at 40 cm to the incisors. It appeared regular with no erythema erosions or ulcerations. Rest of the esophagus appeared normal. Biopsies were done from the distal esophagus patient tolerated the procedure well. At this time the patient continued to remain sedation. Initial digital rectal examination was normal. Olympus CF 160 video colonoscope was then inserted into the rectum and gradually advanced to the cecum with some difficulty difficulty. Careful examination was performed as the scope was gradually being withdrawn. The prep was excellent. The cecum, ascending colon, transverse colon, descending colon, sigmoid colon and rectum appeared normal. Retroflexion was performed in the rectum and no lesions were noted. Patient tolerated the procedure well. Impression: 1. Upper endoscopy revealed mild antral gastritis but no evidence of esophagitis or peptic ulcer disease 2. Colonoscopy was within normal limits with no evidence of colitis or colorectal neoplasia Recommendations: Findings of this examination were discussed with the patient as well as me. She was advised to follow-up with the biopsy results. She will be seen in the office in 2 weeks.
[2025-01-13 09:23] VITALS: BP 129/96; PULSE 81; RESP 18
== END 2025-01-13 09:31 | disposition home or self-care (01) ==
LOC: ORWHC2ENDO 07:14
PROVIDERS: ATTEND Internal Medicine Gastroenterology
DX: K29.50 Unspecified chronic gastritis without bleeding (principal); R19.4 Change in bowel habit; K20.90 Esophagitis, unspecified without bleeding; F41.9 Anxiety disorder, unspecified; F31.9 Bipolar disorder, unspecified; G90.A Postural orthostatic tachycardia syndrome [POTS]; Z79.899 Other long term (current) drug therapy; Z98.890 Other specified postprocedural states
CPT/HCPCS: 81025; 88305; 45378; 43239; J3010; J2704; J2003